=== PATIENT | female | born 1965 | race American Indian/Alaskan Native ===

== ENCOUNTER 2018-01-22 09:12 | Emergency (ER) | payer MEDICARE ==
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
[2018-01-22] MEDS ORDERED: TORADOL IM ONE (11:22)
[2018-01-22] MEDS ORDERED: NORCO 5/325 PO ONE (11:22)
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
[2018-01-22 11:51] VITALS: BP 128/68
== END 2018-01-22 11:49 | disposition home or self-care (01) ==
LOC: ED 09:12
DX: S63.501A Unspecified sprain of right wrist, initial encounter (principal); X58.XXXA Exposure to other specified factors, initial encounter; Y93.89 Activity, other specified; Y92.89 Other specified places as the place of occurrence of the external cause; Y99.8 Other external cause status; M19.041 Primary osteoarthritis, right hand
CPT/HCPCS: 29125; 73130; 96372; 99283; J1885

== ENCOUNTER 2018-01-27 10:53 | Emergency (ER) | payer MEDICARE ==
[2018-01-27 11:17] VITALS: BP 126/87
[2018-01-27] MEDS ORDERED: TYLENOL PO ONE (12:30)
--- NOTE | 2018-01-27 12:35 | Emergency Department Report ---
ED Upper Extremity Inj HPI - General Chief Complaint: Extremity Problem,Nontraumatic Stated Complaint: RT HAND SWOLLEN AND PAIN Time Seen by Provider: 01/27/18 11:41 Source: patient Mode of arrival: Ambulatory Limitations: No Limitations - History of Present Illness Initial Comments: This is a 52-year-old female nontoxic, well nourished in appearance, no acute signs of distress presents to the ED with c/o of right hand and wrist pain 2 months. Patient was seen last week for the same complaint and had a normal xray with no fractures. Patient stated pain is still intermittent. Patient denies any new trauma. Patient denies any numbness, tingling, fever, chills, nausea, vomiting, chest pain, shortness of breath, headache, stiff neck. Patient denies any joint swelling or joint redness. Patient denies decreased range of motion. Patient stated has decreased gait due to pain. MD Complaint: Injury to:: right, wrist, hand -: month(s) (2) Other Extremity Injury: Hand: Right, Wrist: Right Other Injuries: none Severity scale (0 -10): 8 Improves With: immobilization Worsens With: movement of extremity Associated Symptoms: denies other symptoms. denies: weakness, numbness, neck pain, suspects foreign body, nausea/vomiting, heard/felt popping sensat - Related Data Previous Rx's Medication Instructions Recorded Last Taken Type HYDROcodone/APAP 5-325 [Bynum 1 each PO Q6HR PRN #15 tablet 01/22/18 Unknown Rx 5/325] Ibuprofen [Motrin] 600 mg PO Q8H PRN #30 tablet 01/22/18 Unknown Rx Acetaminophen [Tylenol Arthritis] 650 mg PO Q8H PRN #30 tablet.er 01/27/18 Unknown Rx Allergies Allergy/AdvReac Type Severity Reaction Status Date / Time latex Allergy Hives Verified 01/22/18 09:43 Penicillins Allergy Hives Verified 01/22/18 09:42 tramadol [From Ultram] Allergy Itching Verified 01/22/18 09:42 adhesive tape AdvReac Unknown Verified 01/22/18 09:42 ED Review of Systems ROS: Stated complaint: RT HAND SWOLLEN AND PAIN Other details as noted in HPI Constitutional: denies: chills, fever Eyes: denies: eye pain, eye discharge, vision change ENT: denies: ear pain, throat pain Respiratory: denies: cough, shortness of breath, wheezing Cardiovascular: denies: chest pain, palpitations Endocrine: no symptoms reported Gastrointestinal: denies: abdominal pain, nausea, diarrhea Genitourinary: denies: urgency, dysuria, discharge Musculoskeletal: arthralgia. denies: back pain, joint swelling Skin: denies: rash, lesions Neurological: denies: headache, weakness, paresthesias Psychiatric: denies: anxiety, depression Hematological/Lymphatic: denies: easy bleeding, easy bruising ED Past Medical Hx - Past Medical History Previous Medical History?: No - Surgical History Past Surgical History?: No Additional Surgical History: hysterectomy - Social History Smoking Status: Current Every Day Smoker Substance Use Type: None - Medications Home Medications: Home Medications Medication Instructions Recorded Confirmed Last Taken Type HYDROcodone/APAP 5-325 [Bynum 1 each PO Q6HR PRN #15 tablet 01/22/18 Unknown Rx 5/325] Ibuprofen [Motrin] 600 mg PO Q8H PRN #30 tablet 01/22/18 Unknown Rx Acetaminophen [Tylenol Arthritis] 650 mg PO Q8H PRN #30 tablet.er 01/27/18 Unknown Rx ED Physical Exam - General Limitations: No Limitations General appearance: alert, in no apparent distress - Head Head exam: Present: atraumatic, normocephalic - Eye Eye exam: Present: normal appearance - ENT ENT exam: Present: mucous membranes moist - Neck Neck exam: Present: normal inspection - Respiratory Respiratory exam: Present: normal lung sounds bilaterally. Absent: respiratory distress - Cardiovascular Cardiovascular Exam: Present: regular rate, normal rhythm. Absent: systolic murmur, diastolic murmur, rubs, gallop - GI/Abdominal GI/Abdominal exam: Present: soft, normal bowel sounds - Extremities Exam Extremities exam: Present: normal inspection, full ROM, tenderness, normal capillary refill. Absent: joint swelling - Expanded Upper Extremity Exam Right General: Present: normal inspection Shoulder Exam: Present: normal inspection, full ROM. Absent: tenderness, swelling Upper Arm exam: Present: normal inspection, full ROM. Absent: tenderness, swelling Elbow exam: Present: normal inspection, full ROM. Absent: tenderness, swelling Forearm Wrist exam: Present: normal inspection, full ROM, tenderness. Absent: swelling, abrasion, laceration, ecchymosis, deformity, crepidus, dislocation, erythema, tenderness over anatomical snuff box, pain with axial thumb loading Hand Wrist exam: Present: normal inspection, full ROM, tenderness. Absent: swelling, abrasion, laceration, ecchymosis, deformity, crepidus, dislocation, erythema, amputation, nail avulsion, subungual hematoma Neuro motor exam: Present: wrist extension intact, thumb opposition intact, thumb IP flexion intact, thumb adduction intact, fingers 2-5 abduction intact Neurosensory exam: Present: 2-point discrimination, radial nerve intact, ulnar nerve intact, median nerve intact Vascular: Present: vascular compromise, normal capillary refill, radial pulse, brachial pulse, ulnar pulse - Back Exam Back exam: Present: normal inspection, full ROM - Neurological Exam Neurological exam: Present: alert, oriented X3 - Psychiatric Psychiatric exam: Present: normal affect, normal mood - Skin Skin exam: Present: warm, dry, intact, normal color. Absent: rash ED Course Vital Signs 01/27/18 11:15 Temperature 97.7 F Pulse Rate 86 Respiratory 16 Rate Blood Pressure 126/87 O2 Sat by Pulse 100 Oximetry - Reevaluation(s) Reevaluation #1: 01/27/18 12:35 Patient is speaking in full sentences with no signs of distress noted. ED Medical Decision Making - Medical Decision Making this is a 52-year-old female that presents with right wrist and hand strain. Patient is stable exam by me. I referred patient to an orthopedic doctor for further evaluation for possible MRI. X-ray has been obtained last week and dictated by the radiologist. Patient is notified of the x-ray report with noted by the patient. Patient does have normal gait with no tenderness and no joint swelling. No ecchymosis. no joint redness or swelling. Not warm to touch. No signs of cellulites present. Patient received a knee immobilize and patient stated has a walker at home. Patient was instructed to RICE therapy. Patient received Tylenol for pain. Patient is discharged with Tylenol. Patient does have a Velcro wrist splint. At time of discharge, the patient does not seem toxic or ill in appearance. No acute signs of distress noted. Patient agrees to discharge treatment plan of care. No further questions noted by the patient. Critical care attestation.: If time is entered above; I have spent that time in minutes in the direct care of this critically ill patient, excluding procedure time. ED Disposition Clinical Impression: Strain of right wrist Qualifiers: Encounter type: initial encounter Qualified Code(s): S66.911A - Strain of unspecified muscle, fascia and tendon at wrist and hand level, right hand, initial encounter Strain of right hand Qualifiers: Encounter type: initial encounter Qualified Code(s): S66.911A - Strain of unspecified muscle, fascia and tendon at wrist and hand level, right hand, initial encounter Disposition: TO HOME OR SELFCARE Is pt being admited?: No Does the pt Need Aspirin: No Condition: Stable Instructions: RICE Therapy (ED), Acetaminophen (By mouth) Additional Instructions: Follow-up with a orthopedic doctor in 3-5 days or if symptoms worsen and continue return to emergency room as soon as possible. Prescriptions: Acetaminophen [Tylenol Arthritis] 650 mg PO Q8H PRN #30 tablet.er PRN Reason: Pain , Severe (7-10) Referrals: PRIMARY CAREMD [Primary Care Provider] - 3-5 Days CRISTEL AVILA MD [Staff Physician] - 3-5 Days [facility] [place][Note 3] [Outside] - 3-5 Days [facility] [Outside] - 3-5 Days
== END 2018-01-27 12:43 | disposition home or self-care (01) ==
LOC: ED 10:53
DX: S66.911A Strain of unspecified muscle, fascia and tendon at wrist and hand level, right hand, initial encounter (principal); Z91.040 Latex allergy status; Z88.5 Allergy status to narcotic agent; Z88.0 Allergy status to penicillin; Z90.710 Acquired absence of both cervix and uterus; F17.200 Nicotine dependence, unspecified, uncomplicated; X58.XXXA Exposure to other specified factors, initial encounter; Y93.89 Activity, other specified; Y92.89 Other specified places as the place of occurrence of the external cause; Y99.8 Other external cause status